=== PATIENT | male | born 1995 | race American Indian/Alaskan Native ===

== ENCOUNTER 2017-01-26 11:57 | Inpatient (IN) | payer OTHER ==
[~2017-01-26 11:57] MED LIST: NACL IV ONE; [UNRECOGNIZED DRUG - OTHER] IV ONE
[2017-01-26] MEDS ORDERED: BOOSTRIX IM ONE (12:22)
[2017-01-26] MEDS ORDERED: [UNRECOGNIZED DRUG - OTHER] IV ONE (12:24)
[2017-01-26] MEDS ORDERED: NACL IV ONE ×2 (12:24→19:30)
--- NOTE | 2017-01-26 12:46 | XRay Report ---
AP CHEST: HISTORY: Hypertension AP view of the chest demonstrates a normal mediastinal and cardiac contour with clear lungs and normal bony and soft tissue structures. IMPRESSION: Unremarkable AP chest.
[2017-01-26 12:58] LABS: Basophils % (Auto) 0.6 % (0.0-1.8); Eosinophils % (Auto) 2.4 % (0.0-4.3); Hemoglobin 14.8 gm/dl (11.8-15.2); Mean Corpuscular HGB Conc 32 % (32-34); Mean Corpuscular Volume 80 fl (84-94); Platelet Count 179 K/mm3 (140-440); Red Blood Count 5.72 M/mm3 (3.65-5.03); White Blood Count 5.8 K/mm3 (4.5-11.0)
[2017-01-26 13:04] LABS: Mean Corpuscular Hemoglobin 26 pg (28-32)
[2017-01-26 13:08] LABS: INR 1.07 (0.87-1.13)
[2017-01-26 13:09] LABS: Partial Thromboplastin Time 25.3 Sec. (24.2-36.6)
[2017-01-26 13:14] LABS: Creatine Kinase MB 2.6 ng/mL (0.0-4.0)
[2017-01-26 13:15] LABS: Alanine Aminotransferase 14 units/L (7-56); Albumin 4.6 g/dL (3.9-5); Albumin/Globulin Ratio 1.7 %; Alkaline Phosphatase 86 units/L (35-129); Blood Urea Nitrogen 15 mg/dL (9-20); Calcium 9.5 mg/dL (8.4-10.2); Carbon Dioxide 27 mmol/L (22-30); Creatine Kinase 361 units/L (55-170); Glucose 81 mg/dL (75-100); Total Protein 7.3 g/dL (6.3-8.2)
[2017-01-26 13:16] LABS: Anion Gap 15 mmol/L; Chloride 101.1 mmol/L (98-107); Potassium 4.2 mmol/L (3.6-5.0); Sodium 139 mmol/L (137-145)
[2017-01-26 13:18] LABS: Bilirubin,Direct < 0.2 mg/dL (0-0.2); Bilirubin,Indirect 0.3 mg/dL
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
[2017-01-26] MEDS ORDERED: TYLENOL PO PRN (14:22)
[2017-01-26] MEDS ORDERED: ZOFRAN IV PRN (14:22)
--- NOTE | 2017-01-26 14:22 | History and Physical Report ---
History of Present Illness Chief complaint: I got bit by a snake History of present illness: 21 YO Male Right handed with no PMH presents to ED for evaluation. Pt states that he was playing with a baby copperhead snake this morning and got bitten on his right hand. Pt states that he suddenly felt pain in his right hand. Pt denies fever, chills, CP, Palpitations, NVD, syncope, recent ill contacts, productive cough, trauma, or recent ill contacts. Pt mother, and family at bedside during exam and interview. Past History Past Medical History: No medical history, other (reviewed) Past Surgical History: No surgical history, Other (reviewed) Social history: single, lives with family. denies: smoking, alcohol abuse, prescription drug abuse Family history: no significant family history (reviewed) Medications and Allergies Allergies Allergy/AdvReac Type Severity Reaction Status Date / Time No Known Allergies Allergy Verified 01/26/17 12:26 Home Medications Medication Instructions Recorded Confirmed Last Taken Type No Known Home Medications [No 01/26/17 01/26/17 Unknown History Reported Home Medications] Review of Systems All systems: negative Constitutional: other (right hand pain) Exam - Constitutional Vitals: Temp Pulse Resp BP Pulse Ox 98.5 F 86 16 130/79 100 01/26/17 13:26 01/26/17 14:16 01/26/17 14:16 01/26/17 14:16 01/26/17 13:26 General appearance: Present: mild distress - EENT Eyes: Present: PERRL ENT: hearing intact, clear oral mucosa - Neck Neck: Present: supple, normal ROM - Respiratory Respiratory effort: normal Respiratory: bilateral: CTA - Cardiovascular Heart Sounds: Present: S1 & S2. Absent: rub, click - Extremities Extremities: abnormal (right hand edema, pulses intact, sensation intact, no fluctuance, masses, or necrosis) Peripheral Pulses: within normal limits - Abdominal General gastrointestinal: Present: soft, non-tender, non-distended Male genitourinary: Present: normal - Integumentary Integumentary: Present: clear, warm, dry - Musculoskeletal Musculoskeletal: gait normal, strength equal bilaterally - Psychiatric Psychiatric: appropriate mood/affect, intact judgment & insight - Neurologic Neurologic: CNII-XII intact, moves all extremities Results - Labs CBC & Chem 7: 01/26/17 12:39 01/26/17 12:39 Labs: Abnormal lab results 01/26/17 01/26/17 01/26/17 Range/Units 12:39 12:39 12:39 RBC 5.72 H (3.65-5.03) M/mm3 Hct 46.0 H (35.5-45.6) % MCV 80 L (84-94) fl MCH 26 L (28-32) pg [place] % (Auto) 8.1 H (0.0-7.3) % D-Dimer 366.58 H (0-234) ng/mlDDU Total Creatine Kinase 361 H (55-170) units/L Assessment and Plan - Patient Problems (1) Bite, snake, venomous Current Visit: Yes Status: Acute Qualifiers: Encounter type: E Injury intent: I Plan to address problem: Poison control notified: Antivenin administered. continue current care, repeat physical exam. (2) DVT prophylaxis Current Visit: Yes Status: Acute
[2017-01-26 14:55] LABS: Bacteria,Urine 1+ /HPF (Negative); Bilirubin,Urine NEG (Negative); Blood,Urine NEG (Negative); Ketones,Urine TR mg/dL (Negative); Leukocyte Esterase,Urine MOD (Negative); Mucus,Urine 2+ /HPF; Nitrite,Urine NEG (Negative)
[2017-01-26] MEDS ORDERED: NACL 0.9% 50 ML ONE (15:24)
[2017-01-26] MEDS ORDERED: ROCEPHIN ONE (15:24)
[2017-01-26] MEDS: ROCEPHIN/NS 1 GM/50 ML 1 GM/50 ML BAG IV SCH (15:43)
--- NOTE | 2017-01-26 16:53 | Admit Criteria Form ---
Admission Criteria Documentation: VENOM EXPOSURE FROM BITE OR STING Clinical Indications for Admission to Inpatient Care (Place 'X' for any and all applicable criteria): Admission is indicated for ANY ONE of the following(1)(2)(3)(4): [X]I. Crotaline snake bite (eg, rattlesnake, cottonmouth, copperhead) with ANY ONE of the following(5)(6)(7): [ ]a) Rattlesnake envenomation(8) [X ]b) Envenomation requiring antivenom [A] (9) [ ]c) Evidence of coagulopathy(10) [ ]II. Black spider bite with ANY ONE of the following(2)(11)(12): [ ]a) Pain that has not been controlled with outpatient, emergency, and observation care [ ]b) Autonomic symptoms, including nausea, vomiting, diaphoresis, hypertension, or tachycardia [ ]c) Respiratory depression [ ]III. Brown recluse spider bite with systemic symptoms, including ANY ONE of the following(2)(12)(13): [ ]a) Fever [ ]b) Chills [ ]c) Vomiting [ ]d) Nausea [ ]e) Hemolysis [ ]f) Rhabdomyolysis [ ]g) Respiratory failure [ ]h) Severe airflow or ventilation abnormalities [ ]IV.Scorpion sting with systemic symptoms, including ANY ONE of the following( 14)(15)(16)(17): [ ]a) Hemodynamic instability [ ]b) Respiratory failure [ ]c) Pulmonary edema(17)(18) [ ]d) Hypertension [ ]e) Sweating [ ]f) Priapism [ ]g) Mental status changes [ ]h) Fever [ ]i) Cranial nerve dysfunction (eg, blurred vision, dysphonia, upper airway abnormalities) [ ]V. Inpatient admission required rather than observation care ( Use Venom Exposure from Bite or Sting: Observation Care Criteria as appropriate) because of a significant finding or clinical condition judged too severe (eg, treatment intensity or expected duration requires inpatient admission) or too persistent (eg, insufficient improvement or worsening despite initial intervention or treatment for up to 24 hours) to be within the scope of observation care, including ANY ONE of the following: [ ]a) Envenomation injury with severe or persistent systemic symptoms , expansion of margin, or coagulopathy(6)(12)(15) [ ]b) Clinically significant hypersensitivity reaction (to bite or antivenom) that is severe or persistent(19)(20) [ ]c) Severe pain requiring acute inpatient management [ ]d) Other significant finding or clinical condition judged not to be within the scope of observation care Extended stay beyond goal length of stay may be needed for(7)(40): [ ]a) Compartment syndrome or necrotic tissue( [ ]b) Hematologic, liver, renal, respiratory, neurologic, or other abnormalities [ ]c) Continuation of systemic symptoms [ ]d) Immediate hypersensitivity reaction to antivenom The original [email or web address] content created by [email or web address] has been revised. The portions of the content which have been revised are identified through the use of italic text or in bold, and [facility] has neither reviewed nor approved the modified material. All other unmodified content is copyright [email or web address]. Please see references footnoted in the original [employer] edition 2016 Admission Criteria Met: Yes
[2017-01-26] MEDS ORDERED: [UNRECOGNIZED DRUG - OTHER] IV ONE (19:30)
[2017-01-27 01:17] LABS: INR 0.97 (0.87-1.13)
[2017-01-27 01:22] LABS: Alanine Aminotransferase 13 units/L (7-56); Anion Gap 21 mmol/L; BUN/Creatinine Ratio 17.77; Blood Urea Nitrogen 16 mg/dL (9-20); Calcium 9.2 mg/dL (8.4-10.2); Carbon Dioxide 23 mmol/L (22-30); Chloride 99.7 mmol/L (98-107); Glucose 105 mg/dL (75-100); Sodium 140 mmol/L (137-145)
[2017-01-27] MEDS ORDERED: NACL IV ONE ×2 (01:30→07:30)
[2017-01-27] MEDS ORDERED: [UNRECOGNIZED DRUG - OTHER] IV ONE ×2 (01:30→07:30)
[2017-01-27 06:39] LABS: INR 1.09 (0.87-1.13)
[2017-01-27 06:45] LABS: Alanine Aminotransferase 12 units/L (7-56); Anion Gap 19 mmol/L; Blood Urea Nitrogen 15 mg/dL (9-20); Calcium 9.4 mg/dL (8.4-10.2); Carbon Dioxide 26 mmol/L (22-30); Chloride 101.5 mmol/L (98-107); Glucose 96 mg/dL (75-100); Sodium 142 mmol/L (137-145)
[2017-01-27] MEDS: ROCEPHIN/NS 1 GM/50 ML 1 GM/50 ML BAG IV SCH (09:41)
--- NOTE | 2017-01-27 11:00 | Discharge Summary ---
Providers - Providers Date of Admission: 01/26/17 16:21 Attending physician: ALEXANDER NAM Primary care physician: ADMINISTRATIVE SECRETARY Hospitalization Reason for admission: Snake bite Condition: Stable Disposition: DC-01 TO HOME OR SELFCARE Time spent for discharge: 31min Core Measure Documentation - Palliative Care Palliative Care/ Comfort Measures: Not Applicable - Core Measures Any of the following diagnoses?: none Exam - Constitutional Vitals: Temp Pulse Resp BP Pulse Ox 98.4 F 56 L 18 114/65 98 01/26/17 23:00 01/26/17 23:00 01/26/17 23:00 01/26/17 23:00 01/26/17 23:00 General appearance: Present: no acute distress, well-nourished - EENT Eyes: Present: PERRL, EOM intact - Neck Neck: Present: supple, normal ROM - Respiratory Respiratory effort: normal Respiratory: negative: diminished, rales, rhonchi, wheezing - Cardiovascular Rhythm: regular Heart Sounds: Present: S1 & S2 - Extremities Extremities: no ischemia, pulses intact, pulses symmetrical Peripheral Pulses: within normal limits - Abdominal General gastrointestinal: Present: soft, non-tender, non-distended, normal bowel sounds - Integumentary Integumentary: Present: clear, warm - Musculoskeletal Musculoskeletal: strength equal bilaterally - Psychiatric Psychiatric: appropriate mood/affect, cooperative - Neurologic Neurologic: CNII-XII intact, moves all extremities Plan Activity: no restrictions Diet: regular Additional Instructions: Advised not to play with snakes. f/u PMD/ [facility] days Follow up with: PRIMARY CARE, [Primary Care Provider] - 3-5 Days Prescriptions: Cephalexin [Keflex] 500 mg PO Q12HR #10 cap diphenhydrAMINE [Benadryl CAP] 25 mg PO Q8HR PRN #15 capsule PRN Reason: Itching
[2017-01-27 11:12] VITALS: BP 107/59
== END 2017-01-27 12:30 | disposition home or self-care (01) | DRG 918 ==
LOC: ED 11:57 → 3A 16:21
PROVIDERS: ADMIT Internal Medicine; ATTEND Internal Medicine
DX: T63.091A Toxic effect of venom of other snake, accidental (unintentional), initial encounter (principal); F12.90 Cannabis use, unspecified, uncomplicated; Y92.89 Other specified places as the place of occurrence of the external cause
CPT/HCPCS: 36415; 71010; 80048; 80074; 81001; 82550; 82553; 83735; 84450; 84460; 85025; 85379; 85384; 85610; 85730; 90471; 90715; 93005; 93010; 96365; 96367; J0696; J0840; J7050

== ENCOUNTER 2019-03-26 02:06 | Emergency (ER) | payer SELFPAY ==
[2019-03-26 02:22] VITALS: BP 129/71
[2019-03-26 03:07] LABS: Bilirubin,Urine NEG (Negative); Blood,Urine SM (Negative); Mucus,Urine 3+ /HPF; Urobilinogen,Urine < 2.0 mg/dL (<2.0)
[2019-03-26 03:09] LABS: Color,Urine YELLOW (Yellow); WBC,Urine > 182.0 /HPF (0.0-6.0)
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
[2019-03-26] MEDS ORDERED: ROCEPHIN IM ONE (03:18)
[2019-03-26] MEDS ORDERED: XYLOCAINE 1% MPF 5 mL INFILTRATI ONE (03:18)
[2019-03-26] MEDS ORDERED: ZITHROMAX PO ONE (03:18)
== END 2019-03-26 04:34 | disposition home or self-care (01) ==
LOC: ED 02:06
DX: A64 Unspecified sexually transmitted disease (principal); J45.909 Unspecified asthma, uncomplicated; F17.200 Nicotine dependence, unspecified, uncomplicated; F12.10 Cannabis abuse, uncomplicated
CPT/HCPCS: 81001; 87591; 96372; 99283; J0696

== ENCOUNTER 2022-03-07 22:23 | Emergency (ER) | payer SELFPAY ==
[2022-03-07 22:48] VITALS: BP 108/71
[2022-03-07] MEDS ORDERED: ACETAMINOPHEN 500 MG TAB PO ONE (23:23)
[2022-03-08] MEDS ORDERED: ONDANSETRON 4 MG/2 ML INJ IV ONE (00:47)
[2022-03-08] MEDS ORDERED: SODIUM CHLORIDE 0.9% 1000 ML 1,000 ML IV ONE (00:47)
[2022-03-08] MEDS ORDERED: ONDANSETRON 4 MG ODT TAB PO ONE (00:48)
--- NOTE | 2022-03-08 01:14 | Emergency Department Report ---
ED General Adult HPI - General Chief complaint: Upper Respiratory Infection Stated complaint: FEVER & WEAKNESS Time Seen by Provider: 03/07/22 23:22 Source: EMS Mode of arrival: Stretcher Limitations: No Limitations - History of Present Illness Initial comments: Patient 26-year-old male who presents for fever malaise chills left upper abdominal pain x5 days. Patient states generalized malaise and weakness. Patient denies sore throat or ear pain. Cough is productive clear. There is no wheezing. No stridor or shortness of breath. Patient denies history of asthma. No seasonal allergies. Patient states occasional THC. Patient denies other complaints or symptoms. Patient is not COVID vaccinated patient denies suspicious travel contact or exposure. Severity scale (0 -10): 1 - Related Data Previous Rx's Medication Instructions Recorded Last Taken Type cephALEXin [Keflex] 500 mg PO Q12HR #10 cap 01/27/17 Unknown Rx diphenhydrAMINE [Benadryl CAP] 25 mg PO Q8HR PRN #15 capsule 01/27/17 Unknown Rx Doxycycline Monohydrate 100 mg PO BID 10 Days #20 tablet 03/26/19 Unknown Rx Dicyclomine [Bentyl] 10 mg PO QID PRN #28 capsule 03/08/22 Unknown Rx Ondansetron [Zofran Odt] 4 mg PO Q8HR #12 tab.rapdis 03/08/22 Unknown Rx Allergies Allergy/AdvReac Type Severity Reaction Status Date / Time No Known Allergies Allergy Verified 01/26/17 12:26 ED Review of Systems ROS: Stated complaint: FEVER & WEAKNESS Other details as noted in HPI Constitutional: chills, fever, malaise Eyes: denies: eye pain, eye discharge, vision change ENT: throat pain, congestion. denies: ear pain Respiratory: cough. denies: shortness of breath, stridor, wheezing Cardiovascular: denies: chest pain, palpitations, dyspnea on exertion, paroxysmal nocturnal dyspnea Endocrine: no symptoms reported Gastrointestinal: abdominal pain. denies: nausea, vomiting, diarrhea, constipation (Left upper quadrant), melena, hematochezia Genitourinary: frequency. denies: urgency, dysuria, hematuria Musculoskeletal: denies: back pain, joint swelling, arthralgia Skin: denies: rash, lesions Neurological: vertigo. denies: headache, weakness, numbness, paresthesias, confusion Psychiatric: as per HPI Hematological/Lymphatic: denies: easy bleeding, easy bruising ED Past Medical Hx - Past Medical History Previous Medical History?: Yes Hx Asthma: Yes Additional medical history: HEART MURMUR - Surgical History Past Surgical History?: No - Social History Smoking Status: Never Smoker Substance Use Type: None - Medications Home Medications: Home Medications Medication Instructions Recorded Confirmed Last Taken Type cephALEXin [Keflex] 500 mg PO Q12HR #10 cap 01/27/17 Unknown Rx diphenhydrAMINE [Benadryl CAP] 25 mg PO Q8HR PRN #15 capsule 01/27/17 Unknown Rx Doxycycline Monohydrate 100 mg PO BID 10 Days #20 tablet 03/26/19 Unknown Rx Dicyclomine [Bentyl] 10 mg PO QID PRN #28 capsule 03/08/22 Unknown Rx Ondansetron [Zofran Odt] 4 mg PO Q8HR #12 tab.rapdis 03/08/22 Unknown Rx ED Physical Exam - General Limitations: No Limitations General appearance: alert, in no apparent distress - Head Head exam: Present: normocephalic, normal inspection - Eye Eye exam: Present: EOMI Pupils: Present: normal accommodation - ENT ENT exam: Present: normal orophraynx, mucous membranes moist, TM's normal bilaterally, normal external ear exam - Neck Neck exam: Present: normal inspection, full ROM. Absent: tenderness, meningismus, lymphadenopathy, thyromegaly - Respiratory Respiratory exam: Present: normal lung sounds bilaterally. Absent: respiratory distress, wheezes, stridor, chest wall tenderness, prolonged expiratory - Cardiovascular Cardiovascular Exam: Present: regular rate, normal rhythm, normal heart sounds. Absent: systolic murmur, diastolic murmur, rubs, gallop - GI/Abdominal GI/Abdominal exam: Present: soft, normal bowel sounds. Absent: distended, tenderness, guarding, rebound, rigid, bruit, hernia - Rectal Rectal exam: Present: deferred - Extremities Exam Extremities exam: Present: normal inspection, full ROM, normal capillary refill. Absent: tenderness - Back Exam Back exam: Present: normal inspection, CVA tenderness (R), CVA tenderness (L) - Neurological Exam Neurological exam: Present: alert, oriented X3, CN II-XII intact, normal gait, motor sensory deficit - Psychiatric Psychiatric exam: Present: normal affect, normal mood - Skin Skin exam: Present: warm, dry, intact, normal color. Absent: rash ED Course Vital Signs 03/07/22 03/08/22 22:45 01:53 Temperature 99.0 F 100.1 F H Pulse Rate 93 H Respiratory 20 Rate Blood Pressure 108/71 O2 Sat by Pulse 99 Oximetry ED Medical Decision Making - Lab Data Result diagrams: 03/08/22 00:50 03/08/22 00:50 Labs 03/08/22 03/08/22 00:50 00:50 WBC 9.5 RBC 4.97 Hgb 13.4 Hct 40.3 MCV 81 L MCH 27 L MCHC 33 RDW 14.1 Plt Count 177 Lymph % (Auto) 1.8 L [place] % (Auto) 9.0 H Eos % (Auto) 0.6 Baso % (Auto) 0.7 Lymph # (Auto) 0.2 L [place] # (Auto) 0.9 H Eos # (Auto) 0.1 Baso # (Auto) 0.1 Seg Neutrophils % 87.9 H Seg Neutrophils # 8.3 H Sodium 136 L Potassium 4.2 Chloride 100.8 Carbon Dioxide 25 Anion Gap 14 BUN 7 L Creatinine 1.2 Estimated GFR > 60 BUN/Creatinine Ratio 6 Glucose 98 Calcium 9.4 Total Bilirubin 0.50 AST 27 ALT 19 Alkaline Phosphatase 86 Total Protein 6.6 Albumin 4.5 Albumin/Globulin Ratio 2.1 Lipase 19 - Radiology Data Radiology results: report reviewed, image reviewed CHEST 2 VIEWS INDICATION / CLINICAL INFORMATION: fever productive cough. COMPARISON: None available. FINDINGS: SUPPORT DEVICES: None. HEART / MEDIASTINUM: Heart size and mediastinal contour appear within normal limits. LUNGS / PLEURA: No significant pulmonary or pleural abnormality. No pneumothorax. BONES: No significant osseous abnormality. ADDITIONAL FINDINGS: No significant additional findings. IMPRESSION: 1. No active cardiopulmonary disease. Signer Name: George Cruz II, MD Signed: 03/08/2022 2:16 AM Workstation Name: [id number] Transcribed By: ELISA Dictated By: GEORGE CRUZ II, MD Electronically Authenticated By: GEORGE CRUZ II, MD Signed Date/Time: 03/08/22215 DD/ 5 TD/TT: - Medical Decision Making Patient advises symptoms are improved with medications given in ED. His x-ray is clear no infiltrates and opacities. Patient tolerating p.o. intake via p.o. challenge without nausea vomiting at this time. Patient advised to decrease THC, take medications as prescribed continue to hydrate as directed. Follow-up with primary care doctor in 2 to 3 days. Patient verbalized agreement understanding with discharge plan. Patient DC'd home in stable condition at this time. Critical care attestation.: If time is entered above; I have spent that time in minutes in the direct care o f this critically ill patient, excluding procedure time. ED Disposition Clinical Impression: Abdominal pain Qualifiers: Abdominal location: left upper quadrant Qualified Code(s): R10.12 - Left upper quadrant pain Disposition: HOME / SELF CARE / HOMELESS Is pt being admited?: No Does the pt Need Aspirin: No Condition: Stable Instructions: Abdominal Pain, Adult, [id number], Nausea and Vomiting, Adult, What You Need to Know About Marijuana Use Additional Instructions: Take medications as prescribed, decrease marijuana use, continue to hydrate as directed. Follow-up with your doctor in 2 to 3 days. Return to the emergency department should symptoms worsen. Prescriptions: Dicyclomine [Bentyl] 10 mg PO QID PRN #28 capsule PRN Reason: abd spasm Ondansetron [Zofran Odt] 4 mg PO Q8HR #12 tab.rapdis Referrals: TANYA ARROYO MD [Staff Physician] - 3-5 Days Forms: Work/School Release Form(ED) Time of Disposition: 03:01
[2022-03-08 01:28] LABS: Basophils # (Auto) 0.1 K/mm3 (0.0-0.1); Basophils % (Auto) 0.7 % (0.0-1.8); Eosinophils # (Auto) 0.1 K/mm3 (0.0-0.4); Eosinophils % (Auto) 0.6 % (0.0-4.3); Hematocrit 40.3 % (35.5-45.6); Hemoglobin 13.4 gm/dl (11.8-15.2); Lymphocytes # (Auto) 0.2 K/mm3 (1.2-5.4); Lymphocytes % (Auto) 1.8 % (13.4-35.0); Mean Corpuscular HGB Conc 33 % (32-34); Mean Corpuscular Volume 81 fl (84-94); Monocytes # (Auto) 0.9 K/mm3 (0.0-0.8); Platelet Count 177 K/mm3 (140-440); Red Blood Count 4.97 M/mm3 (3.65-5.03); Red Cell Distribution Width 14.1 % (13.2-15.2)
[2022-03-08 01:43] LABS: Alanine Aminotransferase 19 units/L (7-56); Albumin 4.5 g/dL (3.9-5); BUN/Creatinine Ratio 6; Blood Urea Nitrogen 7 mg/dL (9-20); Calcium 9.4 mg/dL (8.4-10.2); Hemolysis Index 6
--- NOTE | 2022-03-08 02:21 | XRay Report ---
CHEST 2 VIEWS INDICATION / CLINICAL INFORMATION: fever productive cough. COMPARISON: None available. FINDINGS: SUPPORT DEVICES: None. HEART / MEDIASTINUM: Heart size and mediastinal contour appear within normal limits. LUNGS / PLEURA: No significant pulmonary or pleural abnormality. No pneumothorax. BONES: No significant osseous abnormality. ADDITIONAL FINDINGS: No significant additional findings. IMPRESSION: 1. No active cardiopulmonary disease. Signer Name: Iron Cruz II, MD Signed: 03/08/2022 2:16 AM Workstation Name: [id number]
[2022-03-08] MEDS ORDERED: IBUPROFEN 800 MG TAB PO ONE (03:19)
== END 2022-03-08 03:29 | disposition home or self-care (01) ==
LOC: ED 22:23
DX: R10.12 Left upper quadrant pain (principal); J45.909 Unspecified asthma, uncomplicated
CPT/HCPCS: 36415; 71046; 80053; 83690; 85025; 96361; 96374; 99284; J2405; J7030; 96360